=== PATIENT | female | born 1935 | race Caucasian/White ===

== ENCOUNTER 2016-12-23 10:34 | Outpatient (CLI) | payer MEDICARE, BC ==
[~2016-12-23 10:34] MED LIST: ASPIRIN325 M1 PO; BISOPROLOL FUMA1 TAB PO; CELEXA20 MG PO; ETODOLAC500 MG PO; FISH OIL CONCEN1 SGL PO; LORTAB 500 MG-71 TAB PO; MULTIVITAMIN1 TAB PO; PRAVACHOL20 MG PO; PRILOSEC20 MG PO; WARFARIN SODIU2.5 MG PO
== END 2016-12-23 16:22 ==
LOC: ACC 10:34
DX: Z86.718 Personal history of other venous thrombosis and embolism (principal); Z79.01 Long term (current) use of anticoagulants; Z51.81 Encounter for therapeutic drug level monitoring
CPT/HCPCS: G0463

== ENCOUNTER 2017-03-22 11:26 | Outpatient (CLI) | payer MEDICARE, BC | END 2017-03-22 14:21 | LOC: ACC 11:26 | DX: Z86.718 Personal history of other venous thrombosis and embolism (principal); Z79.01 Long term (current) use of anticoagulants; Z51.81 Encounter for therapeutic drug level monitoring | CPT/HCPCS: G0463 ==

== ENCOUNTER → 2017-07-21 | Outpatient (CLI) | payer MEDICARE, BC ==
[~2017-07-21] MED LIST changes: +CENTRUM SILVER1 EAC1 PO; +COUMADIN 1 MG TA1 MG PO; +DEPO-PROVER150 MG/M3 IM
== END ==
LOC: LAB 15:46
DX: R07.89 Other chest pain (principal)

== ENCOUNTER 2017-08-04 10:33 | Outpatient (CLI) | payer MEDICARE, BC | END 2017-08-04 15:28 | LOC: ACC 10:33 | DX: Z86.718 Personal history of other venous thrombosis and embolism (principal); Z79.01 Long term (current) use of anticoagulants; Z51.81 Encounter for therapeutic drug level monitoring | CPT/HCPCS: G0463 ==

== ENCOUNTER 2017-08-25 10:22 | Outpatient (CLI) | payer MEDICARE, BC | END 2017-08-25 14:37 | LOC: ACC 10:22 | DX: Z86.718 Personal history of other venous thrombosis and embolism (principal); Z79.01 Long term (current) use of anticoagulants; Z51.81 Encounter for therapeutic drug level monitoring | CPT/HCPCS: G0463 ==

== ENCOUNTER 2017-09-29 10:23 | Outpatient (CLI) | payer MEDICARE, BC | END 2017-09-29 15:41 | LOC: ACC 10:23 | DX: Z86.718 Personal history of other venous thrombosis and embolism (principal); Z79.01 Long term (current) use of anticoagulants; Z51.81 Encounter for therapeutic drug level monitoring | CPT/HCPCS: G0463 ==

== ENCOUNTER 2017-10-27 10:36 | Outpatient (CLI) | payer MEDICARE, BC | END 2017-10-27 15:28 | LOC: ACC 10:36 | DX: Z86.718 Personal history of other venous thrombosis and embolism (principal); Z79.01 Long term (current) use of anticoagulants; Z51.81 Encounter for therapeutic drug level monitoring | CPT/HCPCS: G0463 ==